=== PATIENT | male | born 1965 | race Caucasian/White ===

== ENCOUNTER 2019-01-16 17:18 | Inpatient (IN) | payer MEDICAID ==
[~2019-01-16] VITALS: Ht 172.7 cm; Wt 88.9 kg
[~2019-01-16 17:18] MED LIST: CA CHLORIDE 10% 10 ML SYRINGE ONE; DEXTROSE 50% 50 ML SYRINGE ONE; EPINEPHrine 0.1 MG/ML SYG ONE; ETOMIDATE 20 MG INJ ONE; NA BICARBONATE 8.4% 50 ML SYG ONE; POTASSIUM CHLORIDE 20 MEQ/SW 50 ML IVPB ONE; SUCCINYLCHOLINE CHLORIDE 100 MG/5 ML SYG IV ONE
[2019-01-16] MEDS ORDERED: LACTATED RINGER'S 1,000 ML IV STA ×2 (17:25→17:52)
[2019-01-16] MEDS ORDERED: OCTREOTIDE 50 MCG in SOD CHLORIDE 0.9% 25 ML IVPB STA (17:25)
[2019-01-16] MEDS ORDERED: CEFTRIAXONE 1 GM/50 ML (PMX) 50 ML IVPB STA (17:25)
[2019-01-16] MEDS ORDERED: ONDANSETRON INJ 8 MG in DEXTROSE 5% 50 ML IVPB STA (17:25)
[2019-01-16] MEDS ORDERED: MIDAZOLAM (DRIP) 50 mg/50 mL 50 ML IV STA (17:25)
[2019-01-16] MEDS ORDERED: OCTREOTIDE 500 MCG in SOD CHLORIDE 0.9% 49 ML IV STA (17:25)
[2019-01-16] MEDS ORDERED: PANTOPRAZOLE 40 MG INJ IV STA (17:25)
[2019-01-16] MEDS ORDERED: SOD CHLORIDE 0.9% 1,000 ML IV STA ×2 (17:25→17:52)
[2019-01-16] MEDS ORDERED: LORAZEPAM 2 MG INJ IV ONE (17:30)
[2019-01-16] MEDS ORDERED: DILTIAZEM 25 MG INJ IV ONE (17:30)
[2019-01-16] MEDS ORDERED: PROPOFOL 100 ML IV STA (17:34)
[2019-01-16] MEDS ORDERED: FENTAnyl 50 MCG/ML VIAL ONE (17:48)
[2019-01-16] MEDS ORDERED: FENTAnyl 50 MCG/ML VIAL IV STA (17:51)
[2019-01-16] MEDS ORDERED: PHYTONADIONE 10 MG in DEXTROSE 5% 50 ML IVPB STA (18:00)
[2019-01-16] MEDS ORDERED: CEFTRIAXONE 1 GM/50 ML (PMX) 50 ML IVPB ONE (18:00)
[2019-01-16] MEDS ORDERED: ACETAMINOPHEN 650 MG SUPP PR ONE (18:00)
[2019-01-16] MEDS ORDERED: METOPROLOL 5 MG INJ IV ONE (20:00)
[2019-01-16] MEDS: SOD CHLORIDE 0.9% 1,000 ML IV SCH (21:13)
[2019-01-16] MEDS ORDERED: ALBUTEROL HFA 8 GM INHALER INH PRN (21:30)
[2019-01-16] MEDS ORDERED: ONDANSETRON 4 MG INJ IV PRN (21:30)
[2019-01-16] MEDS ORDERED: LORAZEPAM 2 MG INJ IV PRN (21:30)
[2019-01-16] MEDS ORDERED: ACETAMINOPHEN 650 MG SUPP PR PRN (21:30)
[2019-01-16] MEDS ORDERED: IPRATROPIUM (HFA) 12.9 GM INHALER INH PRN (21:30)
[2019-01-16] MEDS ORDERED: AMIODARONE 150MG/D5W BOLUS 100 ML IV ONE (21:30)
[2019-01-16 22:51] VITALS: RESP 34
[2019-01-16] MEDS ORDERED: VANCOMYCIN IV PER PHARMACY XX SCH (23:00)
[2019-01-16] MEDS ORDERED: SOD CHLORIDE 0.9% 1,000 ML IV ONE ×2 (23:00→23:51)
[2019-01-16 23:15] VITALS: BP 86/47; PULSE 101; RESP 37
[2019-01-16] MEDS ORDERED: NORepinephrine 8MG/250 ML (PMX 250 ML ONE (23:15)
[2019-01-16 23:30] VITALS: BP 84/44; PULSE 157; RESP 18
[2019-01-16] MEDS ORDERED: PHENYLephrine 20MG IN 250 ML 250 ML IV SCH ×2 (23:30→23:45)
[2019-01-16 23:45] VITALS: BP 85/51; PULSE 157; RESP 20
[2019-01-16] MEDS ORDERED: DEXTROSE 50% 50 ML SYRINGE ONE (23:48)
[2019-01-16] MEDS ORDERED: DEXTROSE 50% 50 ML SYRINGE IV ONE (23:50)
[2019-01-17] VITALS (57 sets, daily range): BP systolic 33–119; BP diastolic 19–66; PULSE 0–153; RESP 0–37; Ht 172.7 cm; Wt 88.9 kg
[2019-01-17] MEDS ORDERED: VANCOMYCIN HCL 1.75 GM in SOD CHLORIDE 0.9% 500 ML IVPB SCH ×2
[2019-01-17] MEDS ORDERED: MIDAZOLAM (DRIP) 50 mg/50 mL 50 ML IV SCH
[2019-01-17] MEDS: PANTOPRAZOLE IV 80 MG in SOD CHLORIDE 0.9% 100 ML IV SCH ×3 (00:24→08:29)
[2019-01-17] MEDS: SOD CHLORIDE 0.9% 1,000 ML IV SCH (00:25)
[2019-01-17] MEDS ORDERED: DEXTROSE 50% 50 ML SYRINGE IV PRN ×2 (00:30)
[2019-01-17] MEDS ORDERED: OCTREOTIDE 1 MG in DEXTROSE 5% 95 ML IV SCH (00:30)
[2019-01-17] MEDS ORDERED: GLUCOSE GEL 15 GRAM TUBE PO PRN ×2 (00:30)
[2019-01-17] MEDS ORDERED: NORepinephrine 8MG/250 ML (PMX 250 ML IV SCH (00:30)
[2019-01-17] MEDS ORDERED: GLUCAGON 1 MG INJ IM PRN (00:30)
[2019-01-17] MEDS ORDERED: GLUCOSE GEL 15 GRAM TUBE BUCCAL PRN (00:30)
[2019-01-17] MEDS: NORepinephrine 8MG/250 ML (PMX 250 ML IV SCH ×3 (00:40→10:31)
[2019-01-17] MEDS: PROPOFOL 100 ML IV SCH ×2 (00:41→06:12)
[2019-01-17] MEDS: INSULIN ASPART [NOVOLOG] 3 ML PEN SC SCH ×4 (00:46→12:03)
[2019-01-17] MEDS: PIPER-TAZO 3.375 GM IV (PMX) 100 ML IVPB SCH ×3 (01:39→11:29)
[2019-01-17] MEDS: PHENYLephrine 80 MG in DEXTROSE 5% 242 ML IV SCH ×3 (01:40→10:32)
[2019-01-17] MEDS ORDERED: NA BICARBONATE 8.4% 50 ML SYG ONE (01:42)
[2019-01-17] MEDS ORDERED: NA BICARBONATE 8.4% 50 ML SYG IV ONE (01:44)
[2019-01-17] MEDS ORDERED: VASOPRESSIN 60 UNIT in DEXTROSE 5% 57 ML IV SCH (05:30)
[2019-01-17] MEDS ORDERED: DEXTROSE 5% 1,000 ML IV SCH (06:30)
[2019-01-17] MEDS ORDERED: DOPamine 800 MG in DEXTROSE 5% 230 ML IV SCH (08:30)
[2019-01-17] MEDS ORDERED: SODIUM BICARBONATE IN D5W 1,000 ML IV SCH (09:00)
[2019-01-17] MEDS: POTASSIUM CHLORIDE 100 ML IVPB SCH ×2 (09:11→10:25)
[2019-01-17] MEDS ORDERED: NA BICARBONATE 8.4% 50 ML SYG IV STA (09:15)
[2019-01-17] MEDS ORDERED: LACTATED RINGER'S 1,000 ML IV STA (11:42)
[2019-01-17] MEDS ORDERED: VANCOMYCIN 1 GM 250 ML IVPB SCH (12:00)
[2019-01-17] MEDS ORDERED: PIPER-TAZO 2.25 GM/NS 50 ML IVPB SCH (18:00)
== END 2019-01-17 12:15 | disposition expired | DRG 871 ==
LOC: E/R 17:18 → ICU 20:05
PROVIDERS: ADMIT Internal Medicine; ATTEND Internal Medicine
PROC: 5A1935Z Respiratory Ventilation, Less than 24 Consecutive Hours (ICD-10-PCS; 2019-01-16)
PROC: 4A133R1 Monitoring of Arterial Saturation, Peripheral, Percutaneous Approach (ICD-10-PCS; 2019-01-16)
PROC: 0W3P8ZZ Control Bleeding in Gastrointestinal Tract, Via Natural or Artificial Opening Endoscopic (ICD-10-PCS; 2019-01-16)
PROC: 30233N1 Transfusion of Nonautologous Red Blood Cells into Peripheral Vein, Percutaneous Approach (ICD-10-PCS; 2019-01-16)
PROC: 30233R1 Transfusion of Nonautologous Platelets into Peripheral Vein, Percutaneous Approach (ICD-10-PCS; 2019-01-16)
PROC: 0BH17EZ Insertion of Endotracheal Airway into Trachea, Via Natural or Artificial Opening (ICD-10-PCS; principal; 2019-01-16 23:00)
PROC: 30233K1 Transfusion of Nonautologous Frozen Plasma into Peripheral Vein, Percutaneous Approach (ICD-10-PCS; 2019-01-17)
DX: A41.9 Sepsis, unspecified organism (principal); J96.01 Acute respiratory failure with hypoxia; J96.02 Acute respiratory failure with hypercapnia; R65.21 Severe sepsis with septic shock; I85.11 Secondary esophageal varices with bleeding; N39.0 Urinary tract infection, site not specified; D68.9 Coagulation defect, unspecified; F10.288 Alcohol dependence with other alcohol-induced disorder; C18.9 Malignant neoplasm of colon, unspecified; K76.6 Portal hypertension; I10 Essential (primary) hypertension; D69.6 Thrombocytopenia, unspecified; I46.9 Cardiac arrest, cause unspecified; Z66 Do not resuscitate; K70.31 Alcoholic cirrhosis of liver with ascites; D64.9 Anemia, unspecified; K31.89 Other diseases of stomach and duodenum
CPT/HCPCS: 31500; 36415; 36430; 36600; 70450; 71045; 80053; 80307; 81001; 82803; 82962; 83605; 83690; 83735; 84100; 84484; 85025; 85335; 85610; 85730; 86644; 86850; 86900; 86901; 86920; 86945; 87086; 92950; 93005; 93306; 94002; 94003; 94640; 94770; 96374; 96375; C9113; J0171; J0282; J0696; J1265; J1815; J2060; J2250; J2354; J2370; J2405; J2543; J3010; J3370; J3480; J7030; J7040; J7070; J7120; P9016; P9035; P9059